=== PATIENT | male | born 1985 | race Two or more races ===

== ENCOUNTER 2021-07-12 16:48 | Emergency (ER) | payer SELFPAY ==
[~2021-07-12] VITALS: Ht 167.6 cm; Wt 68.0 kg
--- NOTE | 2021-07-12 17:29 | NUR ---
[facility]. TO ER BED 12. PT IS NOT IN RESP DISTRESS BUT PT IS DIFFICULT TO ARROUSE EVEN WITH STERNAL RUB. PT IS NOT ANSWERING ANY QUESTIONS. UNABLE TO OBTAIN FURTHER INFORMATION. PT WAS BROUGHT IN FOR BEING ALTERED. MD WAS AT THE BEDSIDE FOR EVAL. ORDERS RECEIVED, NOTED AND CARRIED OUT. IV LINE ESTABLISHED ON THE R UPPER ARM W/ 18G. BLOOD DRAWN AND SENT TO LAB. URINE WAS COLLECTED VIA IN AND OUT WITH STRICT STERILE TECHNIQUE OBSERVED DURING THE PROCEDURE. PT ON MONITOR
[2021-07-12] MEDS ORDERED: IV NS 0.9% 1,000 ML BAG IV ONE (17:30)
--- NOTE | 2021-07-12 17:35 | NUR ---
ADDENDUM: Intravenous End Time Documentation: Normal saline 1 liter (IV-WO) : start time: 1735 PM ; end time:1835 PM : IV site:[facility] PIV # 18 Port # 1
[2021-07-12 17:38] LABS: BASOPHILS # (AUTO) 0.1 K/uL (0.0-0.2); EOSINOPHILS % (AUTO) 1.6 % (0.0-6.0); HEMATOCRIT 38 % (39-51); HEMOGLOBIN 12.5 g/dL (13.5-17.5); LYMPHOCYTES # (AUTO) 1.8 K/uL (0.8-4.8); LYMPHOCYTES % (AUTO) 34.1 % (20.0-44.0); MEAN CORPUSCULAR HGB CONC 33 g/dl (31.0-36.0); MEAN CORPUSCULAR VOLUME 92 fL (80-96); MONOCYTES # (AUTO) 0.4 K/uL (0.1-1.30); MONOCYTES % (AUTO) 7.8 % (2.0-12.0); NEUTROPHILS % (AUTO) 55.5 % (43.0-81.0); PLATELET COUNT (AUTO) 328 K/uL (150-450); RED BLOOD CELL COUNT(AUTO) 4.13 MIL/uL (4.5-6.0); WHITE BLOOD COUNT (AUTO) 5.3 K/uL (4.3-11.0)
[2021-07-12 17:51] LABS: CALCIUM, SERUM 7.2 mg/dL (8.5-10.1); CARBON DIOXIDE 25 mmol/L (21-32); CHLORIDE 105 mmol/L (98-107); CREATININE 0.9 mg/dL (0.6-1.3); GLUCOSE 110 mg/dL (74-106); POTASSIUM 3.5 mmol/L (3.5-5.1); SODIUM SERUM 144 mmol/L (136-145); UREA NITROGEN, BLOOD 11 mg/dL (7-18)
[2021-07-12 17:57] LABS: ALANINE AMINOTRANSFERASE 70 U/L (12-78); ALBUMIN 3.6 g/dL (3.4-5.0); ALKALINE PHOSPHATASE 128 U/L (46-116); ASPARTATE AMINOTRANSFERASE 46 U/L (15-37); BILIRUBIN,DIRECT 0.2 mg/dL (0.0-0.2); BILIRUBIN,TOTAL 0.5 mg/dL (0.2-1.0); TOTAL PROTEIN, SERUM 7.7 g/dL (6.4-8.2)
[2021-07-12 18:00] LABS: ACETAMINOPHEN < 10 ug/ml (10-30)
[2021-07-12 18:13] LABS: BILIRUBIN,URINE NEGATIVE (NEGATIVE); COLOR,URINE YELLOW (YELLOW); LEUKOCYTE ESTERASE ,URINE NEGATIVE (NEGATIVE); NITRITE, URINE NEGATIVE (NEGATIVE); PROTEIN,URINE TRACE mg/dl (NEGATIVE); UGLUCOSE NEGATIVE (NEGATIVE); UROBILINOGEN,URINE 0.2 EU/dL (0.2)
[2021-07-12 18:21] LABS: BACTERIA,URINE None seen /HPF (None Seen); HYALINE CASTS, URINE Few /LPF (None Seen); RBC,URINE 0-2 /HPF (0-2); WBC,URINE 0-2 /HPF (0-3)
[2021-07-12 18:23] LABS: SQUAMOUS EPITHELIAL CELL,UR 0-2 /HPF (None Seen)
[2021-07-12 19:34] LABS: SERUM AMMONIA 20 umol/L (11-32)
[2021-07-12 19:54] LABS: THYROID STIMULATING HORMONE 0.598 uIU/mL (0.358-3.74)
--- NOTE | 2021-07-12 20:22 | NUR ---
PT IS AWAKE IN BED. NOT IN ANY DISTRESS. ABLE TO AMBULATE ON STEADY GAIT. PT IS PROVIDED WITH FOOD AND WATER.
--- NOTE | 2021-07-12 21:01 | NUR ---
VERIFIED WITH MD IF COVID SWABS STILL NEEDED. MD ONLY WANTED THE PCR TO BE DONE. NOTED AND CARRIED OUT. PT SWABBED AND SENT TO LAB
--- NOTE | 2021-07-12 22:00 | NUR ---
IV removed. Catheter intact and site benign. Pressure and 4x4 applied to site. No bleeding noted.
--- NOTE | 2021-07-12 22:00 | NUR ---
PT IS REFUSING TO HAVE A BLOOD DRAW AND EVEN THREW WATER AT THE PHLEB. MADE AWARE. PT IS NOW CLERAED TO BE DISCHARGE.
--- NOTE | 2021-07-12 22:00 | NUR ---
Pt ambulatory with a steady gait. Provided with a shirt. pt signed homeless waiver. did not want to have resources.
[2021-07-12 22:03] VITALS: BP 118/81
--- NOTE | 2021-07-12 22:04 | NUR ---
Patient discharged to home in stable condition. Written and verbal after care instructions given. Patient verbalizes understanding of instruction.
== END 2021-07-12 22:04 | disposition home or self-care (01) ==
LOC: ER 16:52 → EDBD 16:52 → ER 22:04
DX: G93.40 Encephalopathy, unspecified (principal); D64.9 Anemia, unspecified; F15.10 Other stimulant abuse, uncomplicated; Z59.00 Homelessness unspecified; F19.10 Other psychoactive substance abuse, uncomplicated; Z20.822 Contact with and (suspected) exposure to COVID-19; R74.01 Elevation of levels of liver transaminase levels
CPT/HCPCS: 36415; 70450; 71045; 80048; 80076; 80143; 80307; 81001; 82140; 82962; 84443; 84484; 85025; 85730; 93005; 96360; 99285; C9803; J7030; U0003